=== PATIENT | female | born 1985 | race Caucasian/White ===

== ENCOUNTER 2021-07-20 08:40 | Emergency (ER) | payer BC, OTHER, SELFPAY ==
[2021-07-20] MEDS ORDERED: Sodium Chloride 0.9% 1,000 ML ONE (09:21)
[2021-07-20] MEDS ORDERED: diphenhydrAMINE 50 MG/ML VIAL ONE (09:21)
[2021-07-20] MEDS ORDERED: Prochlorperazine 10 MG/2 ML VIAL ONE (09:21)
== END 2021-07-20 11:23 | disposition home or self-care (01) ==
LOC: MADERS 08:40
DX: G43.909 Migraine, unspecified, not intractable, without status migrainosus (principal); I10 Essential (primary) hypertension; D64.9 Anemia, unspecified
CPT/HCPCS: 96374; 96375; J0780; J1200; J7050